=== PATIENT | female | born 1990 | race Caucasian/White ===

== ENCOUNTER 2017-03-31 20:46 | Emergency (ER) | payer SELFPAY ==
[~2017-03-31] VITALS: Ht 172.7 cm; Wt 71.1 kg
[2017-03-31 20:58] VITALS: BP 133/90
[2017-03-31] MEDS ORDERED: NEO/POLY/HC EAR SUSP 10ML LEFT EAR SCH (22:00)
== END 2017-03-31 22:56 | disposition home or self-care (01) ==
LOC: ED 22:50
DX: H60.92 Unspecified otitis externa, left ear (principal); F15.10 Other stimulant abuse, uncomplicated
CPT/HCPCS: 99283

== ENCOUNTER 2017-04-02 17:55 | Emergency (ER) | payer OTHER ==
[~2017-04-02] VITALS: Ht 170.2 cm; Wt 69.3 kg
[2017-04-02 18:03] VITALS: BP 129/86
== END 2017-04-02 18:54 | disposition home or self-care (01) ==
LOC: ED 18:48
DX: H60.312 Diffuse otitis externa, left ear (principal)
CPT/HCPCS: 99283

== ENCOUNTER 2017-04-12 16:57 | Emergency (ER) | payer OTHER ==
[~2017-04-12] VITALS: Ht 167.6 cm; Wt 71.0 kg
[2017-04-12] MEDS ORDERED: CLINDAMYCIN PMX 600MG/50ML 50 ML IV ONE (17:30)
[2017-04-12] MEDS ORDERED: CLINDAMYCIN PMX 600MG/50ML 50 ML ONE (20:02)
[2017-04-12 22:02] VITALS: BP 118/76
== END 2017-04-12 22:06 | disposition home or self-care (01) ==
LOC: ED 20:38
DX: K02.9 Dental caries, unspecified (principal); F15.10 Other stimulant abuse, uncomplicated
CPT/HCPCS: 96365

== ENCOUNTER 2017-10-08 12:38 | Emergency (ER) | payer SELFPAY ==
[~2017-10-08] VITALS: Ht 170.2 cm; Wt 77.4 kg
[2017-10-08 12:40] VITALS: BP 128/87
== END 2017-10-08 13:54 | disposition home or self-care (01) ==
LOC: ED 13:48
DX: K08.89 Other specified disorders of teeth and supporting structures (principal)
CPT/HCPCS: 99283

== ENCOUNTER 2017-10-11 16:54 | Emergency (ER) | payer OTHER ==
[~2017-10-11] VITALS: Ht 170.2 cm; Wt 78.0 kg
[2017-10-11 16:55] VITALS: BP 132/87
== END 2017-10-11 18:47 | disposition home or self-care (01) ==
LOC: ED 18:40
DX: O9A.219 Injury, poisoning and certain other consequences of external causes complicating pregnancy, unspecified trimester (principal); T78.40XA Allergy, unspecified, initial encounter; T36.0X5A Adverse effect of penicillins, initial encounter; Y92.89 Other specified places as the place of occurrence of the external cause; K02.9 Dental caries, unspecified; K04.7 Periapical abscess without sinus; O99.320 Drug use complicating pregnancy, unspecified trimester; Z3A.00 Weeks of gestation of pregnancy not specified
CPT/HCPCS: 99283

== ENCOUNTER 2017-11-20 07:32 | Outpatient (CLI) | payer MEDICAID ==
[~2017-11-20] VITALS: Ht 170.2 cm; Wt 83.0 kg
[2017-11-20 07:56] VITALS: BP 114/61
[2017-11-20 08:21] LABS: AMPHETAMINE SCREEN, URINE Negative (Negative); BARBITURATE SCREEN, URINE Negative (Negative); BENZODIAZEPINE SCREEN, URINE Negative (Negative); CANNABINOID SCREEN, URINE Negative (Negative); COCAINE SCREEN, URINE Negative (Negative); METHADONE SCREEN, URINE Negative (Negative); OPIATE SCREEN, URINE Negative (Negative)
[2017-11-20 08:29] LABS: MICROSCOPIC INDICATED
== END 2017-11-20 08:23 | disposition home or self-care (01) ==
LOC: LDOP 07:32
PROVIDERS: ATTEND Obstetrics & Gynecology
DX: O36.8120 Decreased fetal movements, second trimester, not applicable or unspecified (principal); Z3A.00 Weeks of gestation of pregnancy not specified
CPT/HCPCS: 59025; 80307; 81001; 87086; 99211; G0463

== ENCOUNTER 2017-11-20 08:26 | Emergency (ER) | payer MEDICAID | END 2017-11-20 08:56 | disposition home or self-care (01) | LOC: ED 08:33 | DX: O26.892 Other specified pregnancy related conditions, second trimester (principal); R05 Cough; Z3A.21 21 weeks gestation of pregnancy; Z53.21 Procedure and treatment not carried out due to patient leaving prior to being seen by health care provider ==

== ENCOUNTER 2018-06-09 02:20 | Emergency (ER) | payer SELFPAY ==
[~2018-06-09] VITALS: Ht 170.2 cm; Wt 71.6 kg
[2018-06-09 02:23] VITALS: BP 147/96
[2018-06-09] MEDS ORDERED: BACITRACIN ZINC OINT 500U/GM, 0.9 GM ONE (02:51)
[2018-06-09] MEDS ORDERED: IBUPROFEN 200 MG TABLET PO ONE (03:00)
== END 2018-06-09 03:14 | disposition home or self-care (01) ==
LOC: ED 02:45
DX: L03.012 Cellulitis of left finger (principal)
CPT/HCPCS: 99283